=== PATIENT | female | born 1985 | race Caucasian/White ===

== ENCOUNTER 2016-12-23 05:35 | Day surgery (SDC) | payer OTHER ==
[~2016-12-23] VITALS: Ht 167.6 cm; Wt 87.5 kg
[~2016-12-23 05:35] MED LIST: IBUPROFEN800 MG PO; LAMISIL250 MG PO; NAPROSYN500 MG PO; NORCO 5-325 TA1 EACH PO; TYLENOL325 MG PO
--- NOTE | 2016-12-23 07:20 | NUR ---
HAS BEEN TO BR. REMOVED UNDERWEAR.
--- NOTE | 2016-12-23 09:39 | NUR ---
12/23/16 0939 Roxana Sofia 8281 PT WOKE UP AND REPORTED 10/10 PAIN AND NAUSEA, MEDICATION GIVEN PER EMAR.
--- NOTE | 2016-12-23 10:34 | NUR ---
PT RETURNED FROM PACU. REPORTS 10/10 PAIN. SEE MAR FOR MEDICATION GIVEN. PT QUICKLY FALLS ASLEEP BUT IS EASILY AROUSABLE. PT REPORTS NAUSEA BUT DOES NOT WANT MEDICATION AT THIS TIME. BED RAILS UP. CALL LIGHT WITHIN REACH.
--- NOTE | 2016-12-23 11:38 | NUR ---
PT C/O CONT D NAUSEA. REQ PHENERGAN AND GIVEN. ENC TO TAKE PO.
--- NOTE | 2016-12-23 12:22 | NUR ---
PT RESTS QUIETLY EYES CLOSED RA SAT 98% RESP EVEN AT 16. PAIN WNL.
--- NOTE | 2016-12-23 15:12 | NUR ---
HAVE ENC TO TAKE PO TCDB AND TAKE PO PAIN RX. DOESNT WANT TO. STRONGLY HAVE ENC PT.
[2016-12-23] MEDS ORDERED: PERCOCET 5-3251 EACH PO (15:22)
--- NOTE | 2016-12-23 15:26 | NUR ---
EATING SOUP AND CRACKERS. HAS BEEN SLEEPING HAVE HAD TO WAKE PT UP FOR VS EACH TIME SHE RATES PAIN 12/14 HAS NOT GIVEN ANY OTHER #. DOES NOT EXHIBIT BEHAVIOR LIKE A PT IN 12/14 PAIN.
--- NOTE | 2016-12-23 17:00 | NUR ---
AMB SLOWLY IN HALLWAY. TO BR VOIDS 200MLS BRIGHT YELLOW URINE. RETURNED TO BED WANTS TO REST. OFFERRED 2ND PERCOCET AND DECLINES.
--- NOTE | 2016-12-23 17:20 | NUR ---
LYING IN BED WATCHING TV AND DOSING CONTS TO RATE PAIN 10/10. HAS DECLINED 2ND PERCOCET.
--- NOTE | 2016-12-23 17:45 | NUR ---
RCVD PT FROM DAY SURGERY. PT TO ROOM 106 VIA STRETCHER. ORIENTED TO ROOM AND CALL LIGHT. VSS. DENIES NEED FOR PAIN MEDS. WISHES TO SLEEP. LAP SITES WNL.
--- NOTE | 2016-12-23 18:44 | NUR ---
PT CONT TO SLEEP. PULSE OX IN PLACE. SIG OTHER AT BEDSIDE. DID NOT DISTURB.
--- NOTE | 2016-12-23 19:45 | NUR ---
pt awakened. rates abdominal pain 12/14. Percocet X2 given for pain. BP 102/58 [address] Perkins called, pt may be dc'd home with meds. DC instructions read to pt and pt up to bathroom to void.
--- NOTE | 2016-12-23 20:01 | NUR ---
SL dc'd tip intact.
--- NOTE | 2016-12-23 20:15 | NUR ---
esperanza'd in w/c to car.
[2016-12-28] MEDS ORDERED: CITRATE OF MAG296 ML PO (18:57)
--- NOTE | 2017-01-03 12:10 | OR ---
[facility] [address], [place] [address] Signed DATE OF PROCEDURE: 12/23/16 PREOPERATIVE DIAGNOSES Pelvic pain, heavy menstrual bleeding, and endometriosis. POSTOPERATIVE DIAGNOSES Pelvic pain, heavy menstrual bleeding. PROCEDURES Total laparoscopic hysterectomy with bilateral salpingectomy and cystoscopy. SURGEON: Nikhil Perkins MD BLOCK INSPECTOR: Dr. Thakkar. ANESTHESIA: General. ESTIMATED BLOOD LOSS: 50 mL. SPECIMEN: Uterus and bilateral fallopian tubes. DRAINS: Lima to bladder. FINDINGS Cervix is thick, closed, normal-size. Uterus is normal size and shape with uterine cavity sounding to 8 cm. The anterior cul-de-sac was free of any endometriosis or adhesions. Posterior cul-de-sac was free of any endometriosis or adhesions. The left tube was normal length and normal pink fimbriated end with the midportion of the tube missing from previous tubal ligation. The left ovary was normal in size and shape without any evidence of endometriosis or adhesions. There was a small adhesion elevating the sigmoid colon up over the left tube and ovary, but otherwise no adhesions. The left pelvic sidewall appeared normal with no evidence of endometriosis. The right tube was normal length and normal-appearing fimbriated end. Midportion of the tube was missing from previous tubal ligation. There were no adhesions present. Right ovary is normal size and shape without any evidence of endometriosis or adhesions. The right pelvic sidewall is also free of any endometriosis and appeared normal. There are no other abdominal masses or adhesions. DESCRIPTION OF PROCEDURE The patient brought to the operating room, placed in supine position. After adequate general anesthesia was obtained, was placed on dorsal lithotomy position, prepped and draped in a sterile fashion. Lima catheter was placed in the bladder, weighted speculum Electronically Signed By: NIKHIL PERKINS MD 01/03/17 1210 PATIENT NAME: JEAN ROBLES OPERATIVE REPORT DATE OF : 81 PHYSICIAN: NIKHIL PERKINS MD REPORT #: [id number] REPORT IS CONFIDENTIAL AND NOT TO BE RELEASED WITHOUT AUTHORIZATION [facility] [address], [place] [address] Signed placed in the vagina, and the anterior lip of the cervix grasped with an Allis clamp. Uterine cavity was sounded and then the [employer]ract[employer]are uterine manipulator carefully inserted into the fundus of the uterus. The balloon filled with sterile water and the Allis clamp and weighted speculum removed. The cervical cap slid up the manipulator and placed around the cervix and the vaginal cuff slid up the manipulator and pushed against the cervical cap and tightened in place. The end was covered with sterile gloves. This could be manipulated during the abdominal part of the procedure. Attention was then drawn to the abdomen. A small infraumbilical skin incision was made with a scalpel after injecting the area with 0.5% Marcaine with epinephrine. The subcutaneous tissue was dissected with Metzenbaum scissors and the fascia identified, grasped with hemostats, elevated and nicked with Metzenbaum scissors and extended in transverse fashion using Metzenbaum scissors. Retention stitches of 0 Vicryl suture placed above and below the incision. The peritoneum was opened with finger dissection and S retractor was inserted into the incision and spun in 360 degree fashion showing no adhesions and good placement in the abdomen. The Cal cannula and sleeve then entered the abdomen following the S retractors, and the S retractor removed and the sleeve tied in place with the retention stitches. The trocar was removed. The laparoscope with video attachment entered the abdomen under direct visualization. Carbon dioxide was used as distending medium and the above findings were noted. The left abdomen just below the level of the umbilicus, a small skin incision was made after transilluminating the area to avoid any vessels and make sure there were no structures within the abdomen. The skin was then injected with 0.5% Marcaine with epinephrine and a small skin incision made with a scalpel. A bladed 5-mm trocar and sleeve then entered the abdomen under direct visualization. The trocar was removed and the blunt probe inserted. On the right side again just below the level of the umbilicus, the abdominal wall was transilluminated and a skin injected with 0.5% Marcaine with Epinephrine and the skin incision made. A Veress needle with expandable sleeve was placed through the incision into the abdomen under direct visualization. The Veress needle was removed and the 10 mm port expandable with a dilating trocar was placed through the sleeve stretching the fascia open and this entered the abdomen under direct visualization. The trocar was removed and again blunt graspers inserted through the sleeve. The above findings were confirmed. The LigaSure [place] forceps were then brought in the operating field. The left upper pedicle was cauterized in several places and cut using LigaSure bipolar forceps. The dissection was started in the area of the missing fallopian tube and the left utero-ovarian ligament and the left round ligament were all cauterized and cut. The upper part of the broad ligament was cauterized in several places and cut and then the anterior and posterior leaves of the broad ligament were separately cauterized and cut extending down the side of the broad ligament and medially to the midportion anteriorly and posteriorly approximate the level of the cervical cap, which could be identified through the vaginal wall. With the uterine vessels exposed, the uterine vessels were cauterized in several places inside the Electronically Signed By: NIKHIL PERKINS MD 01/03/17 1210 PATIENT NAME: JEAN ROBLES OPERATIVE REPORT DATE OF : 81 PHYSICIAN: NIKHIL PERKINS MD REPORT #: [id number] REPORT IS CONFIDENTIAL AND NOT TO BE RELEASED WITHOUT AUTHORIZATION [facility] [address], [place] [address] Signed cervical cap and then cut and the paracervical tissue cauterized and cut to separate and then identify the vaginal mucosa. The right side was then done in similar fashion cauterizing in the area of the previous tubal ligation and then cauterizing and cutting the right round ligament and right utero-ovarian ligaments and then the upper part of the broad ligament. The anterior posterior leaves of broad ligament were then c auterized and cut, taken down and joining the previous dissection in the midline anteriorly and posteriorly. The exposed uterine vessels were then cauterized in several places and cut and again continued using the [place] bipolar forceps. The paracervical tissue was also then cauterized and cut freeing up so that the entire cervical cap could be identified through the vaginal mucosa and all the vessels now cauterized causing the uterus to elisha significantly. At this point, the Sonicision was brought through the scope and the posterior cul-de-sac opened in the groove of the cervical cap using Sonicision. The dissection was continued from posterior to anterior in the groove of the cervical cap on the left side and then posterior to anterior in the groove along the right side meeting at the anterior midline the uterus and cervix from the vagina. The blunt graspers were used to hold the cervix in the cuff and attention drawn back to the vagina. The [employer] uterine manipulator was removed. The speculum placed in the vagina and the cervix noted to be in the vagina and this was grasped with an Allis clamp and the cervix, uterus pulled through the cuff and passed off the table. A sterile glove with sponge inside was placed in the vagina to hold the pneumoperitoneum and the abdomen refilled with carbon dioxide. The entire area was irrigated, suctioned, examined and noted to have good hemostasis except for one very small area at the left angle which was cauterized with the bipolar [place] forceps. The en do-stitch brock suture was then placed through the right side and the cuff closed starting at the right uterosacral ligament and individually passing the suture through the posterior cuff incorporating the vaginal mucosa and on the first bite placing the suture through the small loop at the end of the suture and the next bite then took the anterior cuff at the angle again grasping the vaginal mucosa, but taking care not to go too deep in order to avoid the bladder. With each bite, the suture was tightened and the suturing continued individually placing the sutures through the posterior cuff then anterior cuff all the way across to the left uterosacral ligament and angle. The stitches were then carried back to the midline to reinforce and to lock the suture in place. Laparoscopic suture scissors were then used to cut the barbed suture at the anterior cuff, so that the suture would not be sticking out and the suture removed. The entire pelvis was irrigated, suctioned, examined, noted to have good hemostasis. The left fallopian tube was then grasped with blunt graspers and [place] forceps was used to cauterize the remaining portion of the tube and cut this free. The tube was taken out. The right fallopian tube was also cauterized across the mesosalpinx and removed and the tube removed. The entire pelvis was again irrigated, suctioned, Electronically Signed By: NIKHIL PERKINS MD 01/03/17 1210 PATIENT NAME: JEAN ROBLES OPERATIVE REPORT DATE OF : 81 PHYSICIAN: NIKHIL PERKINS MD REPORT #: [id number] REPORT IS CONFIDENTIAL AND NOT TO BE RELEASED WITHOUT AUTHORIZATION [facility] [address], [place] [address] Signed examined and noted to have good hemostasis. Both tubes, uterus, cervix had all been removed. Evicel was then dripped on the entire cuff in the raw surface up both sides to the dissection of the fallopian tubes on the ovary. The left pelvic sidewall where the sigmoid had been taken down was also covered with Evicel. At this point, good hemostasis was noted, so all instruments were removed, the gas allowed to escape, and then all 3 sleeves removed. The right lower quadrant incision was palpated and the fascia noted to be closed down to only small hole so that no stitch was needed there in the fascia. The infraumbilical incision fascia was then closed using running stitch of 0 Vicryl suture. The 2 retention stitches tied together for further support. The 3 skin incisions were closed using 4-0 Vicryl subcuticular stitches. The sponge filled glove that was in the vagina was removed. Lima catheter removed and cystoscopy performed. The entire bladder was examined and no defects, blood, or stitches were seen within the bladder. Both the ureteral orifices were identified and both showed good efflux of urine. The cystoscope was then removed and the Lima catheter placed back in the bladder. The patient tolerated the procedure well, went to recovery room in good condition. The sponge, needle, and instrument count correct at the end of the procedure. The uterus and both fallopian tubes were sent to Pathology for identification. MD DUY Horton/Modl /[id number] Electronically Signed By: NIKHIL PERKINS MD 01/03/17 1210 PATIENT NAME: JEAN ROBLES OPERATIVE REPORT DATE OF : 81 PHYSICIAN: NIKHIL PERKINS MD REPORT #: [id number] REPORT IS CONFIDENTIAL AND NOT TO BE RELEASED WITHOUT AUTHORIZATION
== END 2016-12-23 20:07 | disposition home or self-care (01) ==
LOC: DS 05:35 → OPS 05:35 → DS 06:45 → OPS 06:45 → FBC 17:35 → OPS 20:07
PROVIDERS: General Practice
PROC: 0UT94ZZ Resection of Uterus, Percutaneous Endoscopic Approach (ICD-10-PCS; principal; 2016-12-23 06:45)
PROC: 0UB74ZZ Excision of Bilateral Fallopian Tubes, Percutaneous Endoscopic Approach (ICD-10-PCS; 2016-12-23 06:45)
DX: N83.8 Other noninflammatory disorders of ovary, fallopian tube and broad ligament (principal); N80.0 Endometriosis of uterus; Z87.891 Personal history of nicotine dependence; Z98.890 Other specified postprocedural states
CPT/HCPCS: 00944; 90674; J0330; J0690; J1100; J1644; J1885; J2250; J2270; J2405; J2550; J2704; J3010; J7120